=== PATIENT | female | born 1955 | race Caucasian/White ===

== ENCOUNTER 2024-12-13 16:36 | Emergency (ER) | payer OTHER ==
[~2024-12-13] VITALS: Ht 152.4 cm; Wt 47.0 kg
[2024-12-13 16:40] VITALS: BP 155/83; PULSE 94; RESP 17; TEMP 36.5; O2SAT 98
== END 2024-12-13 17:13 | disposition left against medical advice (07) ==
LOC: ER 16:36
DX: S01.81XA Laceration without foreign body of other part of head, initial encounter (principal); I25.2 Old myocardial infarction; X58.XXXA Exposure to other specified factors, initial encounter; Y93.89 Activity, other specified; Y92.89 Other specified places as the place of occurrence of the external cause; Y99.8 Other external cause status
CPT/HCPCS: 99281